=== PATIENT | female | born 1930 | race Caucasian/White ===

== ENCOUNTER 2018-09-15 13:52 | Emergency (ER) | payer OTHER ==
[2018-09-15] MEDS ORDERED: 0.9 % SODIUM CHLORIDE 500 ML IV SCH (14:30)
--- NOTE | 2018-09-15 14:31 | ED Physician Documentation ---
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 Pt presents to the ED via EMS c/o blood in urine that started at noon . EMS reports she had a fall this morning at 0400 with no injury or pain. pt reports dizziness that she contributes to chronic vertigo. change in position makes the dizziness worse. pt took a Meclizine 25 mg at 0900. Pt denies anticoagulant or asa use. Pt recently saw dr edwards cardiology at the [facility] on 06/08/16 her hgb was 11.5 at that time. pt has a hx of Left wrist fx after picking up a box from march 2018 not requiring surgery, pt treated by ortho at [facility]. pt lives alone and ambulates without assistance at baseline. Pt is a DNR pt denies current chest pain, dyspnea, syncope/near syncope, headache, visual disturbances, n/v/d, fever/chills, rash, sick contacts, dysuria, trauma. melena or hematochezia, bleeding or easy bruising, change in bowel or bladder function. anxiety or depression. ROS Negative unless otherwise specified. - ROS CONST: weakness EYES/ENT: none CVS/RESP: none. denies: chest pain, shortness of breath, cough GI/: abdominal pain (suprapubic pain), problems urinating. denies: vomiting, nausea, diarrhea MS/SKIN/LYMPH: none NEURO/PSYCH: dizziness - PAST HX Past History: hypertension, other (shingles, chronic vertigo, sjogrnes syndrome. ) Surgeries/Procedures: cholecystectomy, hysterectomy, other (Bilateral cataracts, Bilateral feet, Right carotid. ) Allergies/Adverse Reactions: Allergies Allergy/AdvReac Type Severity Reaction Status Date / Time cetirizine HCl [From Zyrtec] Allergy Unknown Unverified 07/10/13 12:28 ibuprofen [From Advil] Allergy Unknown Unverified 07/10/13 12:28 meclizine HCl [From Antivert] Allergy Unknown Unverified 07/10/13 12:28 oxytetracycline Allergy Unknown Nausea/Vomi Unverified 09/15/18 16:36 [From Terramycin] ting oxytetracycline HCl Allergy Unknown Nausea/Vomi Unverified 09/15/18 16:36 [From Terramycin] ting Sulfa (Sulfonamide Allergy Unknown Nausea/Vomi Unverified 09/15/18 16:36 Antibiotics) ting acetaminophen [From Tylenol] Allergy Unverified 07/10/13 12:28 simvastatin Allergy Unverified 07/10/13 12:28 naproxen AdvReac Mild GI upset Unverified 07/10/13 12:28 lidocaine HCl AdvReac Unknown Nausea/Vomi Unverified 09/15/18 16:36 [From Xylocaine] ting IV Contrast AdvReac Unknown Nausea/Vomi Uncoded 09/15/18 16:36 ting Home Medications: Ambulatory Orders Medication Instructions Recorded Ascorbic Acid [Vitamin C] 1,000 mg PO DAILY u2 07/10/13 Biotin 10 mg PO DAILY u2 07/10/13 Cholecalciferol (Vitamin D3) 400 unit PO 3tabs qd 07/10/13 [Vitamin D] Flaxseed Oil [Flax Oil] 1,000 mg PO BID av 07/10/13 Lisinopril 40 mg PO 1T u2 07/10/13 Meclizine HCl 12.5 mg PO ii bid u2 07/10/13 - SOCIAL HX Smoking History: non-smoker Alcohol Use: none Drug Use: none - FAMILY HX Family History: Yes (DM. lung ca. CVD) - REVIEWED ASSESSMENTS Nursing Assessment Reviewed: Yes Vitals Reviewed: Yes Progress - Progress Progress: 1717: Dr Ireland internal med at [facility] accepted pt for transfer. pt to be transferred via ground ALS. - EKG/XRAY/CT EKG: NSR, no ST T wave changes Comments: Rate 81. normal intervals, axis, QRS. interp by me. ED Results Lab/Radiology - Radiology Radiology Impressions: Report Submission Date: Sep 15, 2018 4:16:45 PM BED RUBBER Patient Study Name: JONATHAN NAYAK Date: Sep 15, 2018 3:58:19 PM BED RUBBER Modality Type: CT\SR Gender: F Description: CT BRAIN W/O CONTRAST : [birth year] Institution: [facility] Physician: ANGIE MCQUEEN Head CT without contrast History: Dizziness Technique: Axial images were obtained the skull base to the vertex without IV contrast. Findings: The ventricular system, basilar cisterns and cortical sulci are prominent compatible with age-related cortical volume loss. There is no positive mass effect or intra/extra-axial hemorrhage. Visualized paranasal sinuses and mastoid air cells are clear and the calvarium is intact. Impression: Age-related cortical volume loss. Otherwise, no intracranial abnormality. Electronically signed on Sep 15, 2018 4:16:45 PM BED RUBBER by: Lary Arroyo Report Submission Date: Sep 15, 2018 5:33:53 PM BED RUBBER Patient Study Name: JONATHAN NAYAK Date: Sep 15, 2018 5:14:27 PM BED RUBBER Modality Type: DX Gender: F Description: CHEST : [birth year] Institution: [facility] Physician: ANGIE MCQUEEN Portable chest Clinical history: Dizziness. Findings: Examination of the chest single portable AP view demonstrates the lungs to be clear. Cardiovascular and mediastinal silhouettes are within normal limits. The aorta is atherosclerotic. Monitor leads superimpose the chest. Impression: 1. Aortic atherosclerosis. 2. No active disease. Electronically signed on Sep 15, 2018 5:33:53 PM BED RUBBER by: Jimmie Ureña General Adult Physical Exam - PHYSICAL EXAM GENERAL APPEARANCE: no distress EENT: eye inspection normal, ENT inspection normal, pharynx normal, no signs of dehydration, GENOVEVA, no nystagmus, TM's nml NECK: normal inspection, thyroid normal RESPIRATORY: no resp distress, chest non-tender, breath sounds normal CVS: reg rate & rhythm, heart sounds normal, equal pulses, no murmur, no gallop, PMI nml, no JVD, no friction rub, 24 ABDOMEN: soft, no organomegaly, normal bowel sounds, no abdominal bruit, no distension BACK: normal inspection, no CVA tenderness SKIN: warm/dry, other (mildly pale) EXTREMITIES: non-tender, normal range of motion, no evidence of injury, no edema, J, V[employer] LE[employer] NEURO: oriented X3, CN's nml as tested, motor nml, sensation nml, mood/affect nml, other (NIH 0) Discharge Clincal Impression: NSTEMI, initial episode of care Anemia Qualifiers: Anemia type: unspecified type Qualified Code(s): D64.9 - Anemia, unspecified Hematuria Qualifiers: Hematuria type: gross Qualified Code(s): R31.0 - Gross hematuria Condition: Stable Disposition: 02 XFER SHT-TRM HOSP Decision to Admit: NO Date of Decison to Admit: 09/15/18 Decision Time: 17:34
[2018-09-15] MEDS ORDERED: 0.9 % SODIUM CHLORIDE 1,000 ML IV ONE ×2 (14:55→16:25)
[2018-09-15] MEDS ORDERED: 0.9 % SODIUM CHLORIDE 500 ML IV ONE (15:04)
[2018-09-15 15:32] LABS: MEAN CORPUSCULAR HEMOGLOBIN 30.1 pg (28.0-34.0)
[2018-09-15 15:33] LABS: BASOPHILS % 0.3 (0.0-1.5); EOSINOPHILS % 1.2 % (0.0-6.8); MONOCYTES % 7.5 % (0.0-11.0)
[2018-09-15 15:34] LABS: NEUTROPHILS # 3.6 # k/uL (1.4-7.7)
[2018-09-15 15:36] LABS: eGFR (Non-African) > 60
[2018-09-15] MEDS ORDERED: MECLIZINE HCL 25 MG TABLET PO ONE (16:47)
[2018-09-15 17:18] LABS: APPEARANCE,URINE TURBID (CLEAR); COLOR,URINE RED (YELLOW); OCCULT BLOOD,URINE 3+ (NEGATIVE); PH URINE 7.5 (5.0 - 8.0); UROBILINOGEN URINE 0.2 Eu (0.2-1.0)
[2018-09-15] MEDS ORDERED: CALCIUM GLUCONATE 100 MG/ML VIAL IV ONE (17:51)
[2018-09-15 18:56] VITALS: BP 144/73
--- NOTE | 2018-09-16 05:03 | Diagnostic Imaging Report ---
ANGIE MCQUEEN [facility] [id number] [facility] [address] [address] Report Submission Date: Sep 15, 2018 4:16:45 PM CONTINUING EDUCATION DIRECTOR Patient Study Name: JONATHAN NAYAK Date: Sep 15, 2018 3:58:19 PM CONTINUING EDUCATION DIRECTOR Modality Type: CT\SR Gender: F Description: CT BRAIN W/O CONTRAST : [birth year] Institution: [facility] Physician: ANGIE MCQUEEN Head CT without contrast History: Dizziness Technique: Axial images were obtained the skull base to the vertex without IV contrast. Findings: The ventricular system, basilar cisterns and cortical sulci are prominent compatible with age-related cortical volume loss. There is no positive mass effect or intra/extra-axial hemorrhage. Visualized paranasal sinuses and mastoid air cells are clear and the calvarium is intact. Impression: Age-related cortical volume loss. Otherwise, no intracranial abnormality. Electronically signed on Sep 15, 2018 4:16:45 PM CONTINUING EDUCATION DIRECTOR by: Lary YOUNG
--- NOTE | 2018-09-16 05:04 | Diagnostic Imaging Report ---
ANGIE MCQUEEN [facility] [id number] [facility] [address] Report Submission Date: Sep 15, 2018 5:33:53 PM RADAR REPAIRER Patient Study Name: JONATHAN NAYAK Date: Sep 15, 2018 5:14:27 PM RADAR REPAIRER Modality Type: DX Gender: F Description: CHEST : [birth year] Institution: [facility] Physician: ANGIE MCQUEEN Portable chest Clinical history: Dizziness. Findings: Examination of the chest single portable AP view demonstrates the lungs to be clear. Cardiovascular and mediastinal silhouettes are within normal limits. The aorta is atherosclerotic. Monitor leads superimpose the chest. Impression: 1. Aortic atherosclerosis. 2. No active disease. Electronically signed on Sep 15, 2018 5:33:53 PM RADAR REPAIRER by: Jimmie YOUNG
== END 2018-09-15 18:35 | disposition short-term general hospital (02) ==
LOC: ED 13:52
DX: I21.4 Non-ST elevation (NSTEMI) myocardial infarction (principal); D64.9 Anemia, unspecified; R31.9 Hematuria, unspecified
CPT/HCPCS: 36415; 70450; 71045; 80053; 81002; 83880; 84484; 85025; 87086; 93005; 96365; 96375; 99285; J0610; J7030